=== PATIENT | female | born 1930 | race Caucasian/White ===

== ENCOUNTER 2016-07-03 09:26 | Day surgery (SDC) | payer MEDICARE ==
[2016-07-03] MEDS ORDERED: Sodium Chloride 0.9% 10 ML Syringe FLUSH PRN (09:30)
[2016-07-03] MEDS ORDERED: Phenylephrine 10% Ophth Soln 5 ML Bot EYELF ONE (09:30)
[2016-07-03] MEDS ORDERED: Phenylephrine 10% Ophth Soln 5 ML Bot EYELF PRN (09:30)
[2016-07-03] MEDS ORDERED: Povidone-Iodine 5% Sterile Ophth Soln 30 ML Bottle EYELF ONE ×2 (09:30→10:26)
[2016-07-03] MEDS ORDERED: Proparacaine 0.5% Ophth Soln 15 ML Bottle EYELF ONE (09:30)
[2016-07-03] MEDS ORDERED: Moxifloxacin 0.5% Ophth Soln 3 ML Bottle EYELF ONE (09:30)
[2016-07-03] MEDS ORDERED: Cataract Ophth Solution EYELF ONE (09:30)
[2016-07-03] MEDS ORDERED: Ondansetron 4 MG/2 ML SDV IVPUSH PRN (09:30)
[2016-07-03] MEDS ORDERED: Timolol Maleate 0.5% Ophth Soln 5 ML Bottle EYELF ONE (09:30)
[2016-07-03] MEDS ORDERED: Acetaminophen 325 MG Tab PO PRN (09:30)
[2016-07-03] MEDS ORDERED: Dexamethasone 4 MG/ML SDV IV ONE (10:20)
[2016-07-03] MEDS ORDERED: Midazolam 1 MG/ML 2 ML SDV IV ONE (10:20)
[2016-07-03] MEDS ORDERED: Diclofenac Sodium 0.1% Ophth Soln 5 ML Bottle EYELF ONE (10:28)
[2016-07-03] MEDS ORDERED: Apraclonidine 0.5% Ophth Soln 5 ML Bot EYELF ONE (10:28)
[2016-07-03] MEDS ORDERED: Lidocaine 1% 30 ML SDV ONE (10:29)
[2016-07-03] MEDS ORDERED: Dexamethasone/Neomycin/Polymyxin B Ophth Oint 3.5 GM Tube EYELF ONE (10:29)
[2016-07-03] MEDS ORDERED: Vancomycin 500 MG SDV EYELF ONE (10:29)
[2016-07-03] MEDS ORDERED: Tetracaine 0.5% 2 ML Bottle EYELF ONE (10:29)
[2016-07-03] MEDS ORDERED: Balanced Salt Solution Ophth Irrig 500 ML Bottle IOCULAR ONE (10:29)
[2016-07-03] MEDS ORDERED: Chondroitin Sulfate/Hyaluronate Sodium Ophth Inj 0.75 ML Syringe EYELF ONE (10:30)
[2016-07-03] MEDS ORDERED: Dexamethasone 4 MG/ML SDV IOCULAR ONE (10:35)
--- NOTE | 2016-07-03 11:04 | OR ---
DATE: 07/03/2016 PREOPERATIVE DIAGNOSIS: Cataract, left eye. POSTOPERATIVE DIAGNOSIS: Cataract, left eye. PROCEDURE: Extracapsular cataract extraction with intraocular lens implant, left eye. ANESTHESIA: Topical/local MAC. COMPLICATIONS: None. INDICATION: Mrs. Mejía was seen in the clinic with complaints of blurred vision. She has difficulty reading, difficulty seeing at distance. Clinical examination reveals visually significant cataract. I explained options, I offered cataract surgery, and explained risks preoperatively including but not limited to, infection, retinal detachment, loss of vision, need for additional surgery, and risks associated with anesthesia. We discussed implant options. She requested a monofocal implant. She does have an epiretinal membrane in the left eye and I explained that her ultimate visual potential may be limited. She is symptomatic. Voiced an understanding with respect to risks and limitations and wished to proceed. OPERATIVE DESCRIPTION: After informed consent was obtained and the risks, benefits, and alternatives were explained, the patient was brought to the operative suite and topical anesthesia was administered. The patient was then prepped and draped in the sterile fashion and attention was placed on the left eye. A sterile lid speculum was placed into the left eye to allow operative exposure. A full-thickness paracentesis was made in the temporal portion of the operative eye. Preservative-free lidocaine 0.1 mL was injected into the anterior chamber followed by viscoelastic. A full-thickness corneal incision was then made into the anterior chamber. A bent needle cystotome was used to create a small mike in the anterior capsule. The capsulorrhexis forceps was then used to create a 360-degree curvilinear capsulorrhexis. The nucleus was then removed using a phacoemulsification handpiece and the remaining cortical material was then removed with irrigation and aspiration handpiece. Following removal of the cortical material, the capsular bag was then inspected and noted to be free of any holes or tears. Viscoelastic was then injected into the capsular bag and the intraocular lens was inserted into the capsular bag. No complications occurred. The viscoelastic material was then removed from both the anterior and posterior chambers and from behind the IOL. The lens and capsular bag were then reinspected. The IOL was well centered and the capsular bag intact. The wound and paracentesis sites were inspected and hydrated with balanced saline solution. Both were found to be self-sealing. The intraocular pressure was assessed digitally and found to be within normal range. A good red reflex was noted at the completion of the procedure. No complications occurred during the operation. At the completion of the procedure, Maxitrol, Voltaren, and Iopidine drops were placed into the operative eye. A sterile eye shield was placed over the operative eye and the patient was transported to the postoperative recovery area having tolerated the procedure well. Postoperative instructions were given along with a postoperative appointment. The patient was advised to call with any questions or concerns. [facility] /[id number]
[2016-07-03 13:37] VITALS: BP 179/77
== END 2016-07-03 11:35 | disposition home or self-care (01) ==
LOC: DL.SDS 09:26
PROVIDERS: ATTEND Ophthalmology
DX: H26.9 Unspecified cataract (principal); E11.22 Type 2 diabetes mellitus with diabetic chronic kidney disease; I12.9 Hypertensive chronic kidney disease with stage 1 through stage 4 chronic kidney disease, or unspecified chronic kidney disease; N18.9 Chronic kidney disease, unspecified; F41.9 Anxiety disorder, unspecified; E78.5 Hyperlipidemia, unspecified; Z90.49 Acquired absence of other specified parts of digestive tract; Z98.890 Other specified postprocedural states; Z90.710 Acquired absence of both cervix and uterus; Z79.899 Other long term (current) drug therapy; Z88.8 Allergy status to other drugs, medicaments and biological substances; Z87.891 Personal history of nicotine dependence
CPT/HCPCS: 66984; A9270; J1100; J3370; J7050; 00142; C1780; J2250

== ENCOUNTER 2017-11-08 03:07 | Emergency (ER) | payer MEDICARE ==
[2017-11-08 03:11] VITALS: BP 99/40
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
[2017-11-08 03:40] LABS: ANION GAP 13.2
[2017-11-08] MEDS ORDERED: Cefepime 2 GM in Sodium Chloride 0.9% 50 ML IV ONE (04:22)
[2017-11-08] MEDS ORDERED: metroNIDAZOLE/Normal Saline 500 MG in Premix Bag 100 BAG IV ONE (04:22)
[2017-11-08] MEDS ORDERED: Sodium Chloride 0.9% 1,000 ML IV ONE (04:53)
[2017-11-08] MEDS ORDERED: Sodium Chloride 0.9% 500 ML IV SCH (05:00)
--- NOTE | 2017-11-10 07:31 | EKG ---
11/08/2017- CHALO LE - EKG per my reading, shows sinus rhythm at a rate of 84 with incomplete right bundle-branch block. [facility] /[id number]
== END 2017-11-08 05:07 ==
LOC: DL.ED 03:07
DX: A41.9 Sepsis, unspecified organism (principal); R79.89 Other specified abnormal findings of blood chemistry; I12.0 Hypertensive chronic kidney disease with stage 5 chronic kidney disease or end stage renal disease; N18.9 Chronic kidney disease, unspecified; R94.5 Abnormal results of liver function studies; R53.83 Other fatigue; E78.00 Pure hypercholesterolemia, unspecified; Z87.891 Personal history of nicotine dependence; Z79.899 Other long term (current) drug therapy; Z88.7 Allergy status to serum and vaccine; Z88.5 Allergy status to narcotic agent; Z88.1 Allergy status to other antibiotic agents; Z91.013 Allergy to seafood
CPT/HCPCS: 36415; 71045; 80053; 81001; 83605; 83880; 84484; 85025; 87040; 87077; 87186; 93005; 93010; 96365; 96368; 99285; J0692; J3370; J3490; J7030; J7050; 99284

== ENCOUNTER 2019-09-15 14:03 | Inpatient (IN) | payer MEDICARE ==
[2019-09-15] MEDS ORDERED: Furosemide 20 MG Tab PO SCH (17:45)
[2019-09-15 17:53] LABS: ANION GAP 10.8 mEq/L (7-13)
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
[2019-09-15] MEDS ORDERED: Piperacillin/Tazobactam 3.375 GM in Sodium Chloride 0.9% 100 ML IV SCH (18:00)
[2019-09-15] MEDS ORDERED: Zolpidem 5 MG Tab PO PRN (18:58)
[2019-09-15] MEDS ORDERED: Acetaminophen 325 MG Tab PO PRN (18:58)
[2019-09-15] MEDS ORDERED: Ondansetron 4 MG Tab.DIS PO PRN (18:58)
[2019-09-15] MEDS ORDERED: Docusate Sodium 100 MG Cap PO PRN (18:58)
[2019-09-15] MEDS: Sodium Chloride 0.9% 10 ML Syringe FLUSH PRN ×2 (20:37→21:37)
[2019-09-15] MEDS: Piperacillin/Tazobactam 3.375 GM in Sodium Chloride 0.9% 100 ML IV SCH (21:38)
[2019-09-15] MEDS: Simvastatin 10 MG Tab PO SCH (21:53)
[2019-09-15] MEDS: Lisinopril 10 MG Tab PO SCH (21:54)
[2019-09-15] MEDS: traZODone 50 MG Tab PO SCH (21:54)
[2019-09-15] MEDS: Heparin Sodium 5,000 Units/ML Vial SUBCUT SCH (21:56)
[2019-09-15] MEDS: Gabapentin 100 MG Cap PO SCH (21:56)
[2019-09-16] MEDS: Acetaminophen/HYDROcodone 325-10 MG Tab PO PRN (00:09)
[2019-09-16] MEDS: Sodium Chloride 0.9% 10 ML Syringe FLUSH PRN ×3 (03:08→18:03)
[2019-09-16] MEDS: Piperacillin/Tazobactam 3.375 GM in Sodium Chloride 0.9% 100 ML IV SCH ×3 (03:09→18:03)
[2019-09-16] MEDS: Famotidine 20 MG Tab PO SCH (06:20)
[2019-09-16 06:30] LABS: ANION GAP 9.4 mEq/L (7-13)
[2019-09-16] MEDS: Heparin Sodium 5,000 Units/ML Vial SUBCUT SCH ×3 (06:30→22:11)
[2019-09-16] MEDS: Gabapentin 100 MG Cap PO SCH ×2 (08:41→22:10)
[2019-09-16] MEDS: Lisinopril 10 MG Tab PO SCH ×2 (08:42→22:10)
[2019-09-16] MEDS: Furosemide 20 MG Tab PO SCH (08:42)
[2019-09-16] MEDS: Atenolol 50 MG Tab PO SCH (08:42)
--- NOTE | 2019-09-16 10:24 | PCM.CONSN ---
- General Info Date of Service: 09/16/19 Subjective Update: 89 y/o female who was admitted yesterday for right foot cellulitis. She states she noticed a small area that had opened a few days ago, had the nurse at [facility], where she lives, clean it and bandage. States it was doing well, then yesterday noticed a significant increase in the redness to the great toe and extending up her foot. Also reports some drainage from the great toenail bed. States it is somewhat painful today also. TOenail procedure done last night and she reports foot feels better today. - Patient Data Vitals - Most Recent: Last Vital Signs Temp 36.2 C 09/16/19 08:05 Pulse 60 09/16/19 08:42 Resp 18 09/16/19 08:05 BP 124/51 L 09/16/19 08:42 Pulse Ox 98 09/16/19 08:05 Weight - Most Recent: 62.596 kg I&O - Last 24 Hours: Intake & Output 09/15/19 09/16/19 09/16/19 22:59 06:59 14:59 Intake Total 642 299 Output Total 400 200 Balance 242 299 -200 Lab Results Last 24 Hours: Laboratory Results - last 24 hr 09/15/19 09/15/19 09/16/19 Range/Units 17:25 17:25 05:50 WBC 11.8 H 9.0 (5.0-10.0) 10^3/uL RBC 4.17 L 3.78 L (4.2-5.4) 10^6/uL Hgb 12.3 11.1 L (12.0-16.0) g/dL Hct 37.6 34.2 L (37.0-47.0) % MCV 90.2 D 90.5 (80-100) fL MCH 29.5 29.4 (27.0-34.0) pg MCHC 32.7 L 32.5 L (33.0-35.0) g/dL Plt Count 291 D 261 (150-450) 10^3/uL Neut % (Auto) 74.0 61.5 (42.2-75.2) % Lymph % (Auto) 14.9 L 27.0 (20.5-50.1) % [place] % (Auto) 8.4 H 8.4 H (2-8) % Eos % (Auto) 2.4 3.0 (1.0-3.0) % Baso % (Auto) 0.3 0.1 (0.0-1.0) % Sodium 140 (136-145) mmol/L Potassium 3.8 (3.5-5.1) mmol/L Chloride 103 (98-107) mmol/L Carbon Dioxide 30 (21-32) mmol/L Anion Gap 10.8 (7-13) mEq/L BUN 43 H (7-18) mg/dL Creatinine 1.74 H (0.55-1.02) mg/dL Est Cr Clr Drug Dosing 18.84 mL/min Estimated GFR (MDRD) 28 Glucose 95 (74-99) mg/dL Calcium 9.1 (8.5-10.1) mg/dL 05/29/20 Range/Units 05:50 WBC (5.0-10.0) 10^3/uL RBC (4.2-5.4) 10^6/uL Hgb (12.0-16.0) g/dL Hct (37.0-47.0) % MCV (80-100) fL MCH (27.0-34.0) pg MCHC (33.0-35.0) g/dL Plt Count (150-450) 10^3/uL Neut % (Auto) (42.2-75.2) % Lymph % (Auto) (20.5-50.1) % [place] % (Auto) (2-8) % Eos % (Auto) (1.0-3.0) % Baso % (Auto) (0.0-1.0) % Sodium 140 (136-145) mmol/L Potassium 4.4 (3.5-5.1) mmol/L Chloride 106 (98-107) mmol/L Carbon Dioxide 29 (21-32) mmol/L Anion Gap 9.4 (7-13) mEq/L BUN 36 H (7-18) mg/dL Creatinine 1.82 H (0.55-1.02) mg/dL Est Cr Clr Drug Dosing 18.01 mL/min Estimated GFR (MDRD) 26 Glucose 93 (74-99) mg/dL Calcium 8.2 L (8.5-10.1) mg/dL Lux Results Last 24 Hours: Microbiology 05/28/20 17:55 Gram Stain - Final Foot, Right Med Orders - Current: Current Medications Acetaminophen (Tylenol) 650 mg PO Q4H PRN PRN Reason: Pain (Mild 1-3)/fever Hydrocodone Bitart/Acetaminophen ([place] 325-10 Mg) 1 tab PO Q6H PRN PRN Reason: moderate pain Last Admin: 09/16/19 00:09 Dose: 1 tab Atenolol (Tenormin) 100 mg PO DAILY [facility] Last Admin: 09/16/19 08:42 Dose: 100 mg Docusate Sodium (Colace) 100 mg PO BID PRN PRN Reason: Constipation Famotidine (Pepcid) 20 mg PO ACBREAKFAST [facility] Last Admin: 09/16/19 06:20 Dose: 20 mg Furosemide (Lasix) 20 mg PO MoFr@0900 [facility] Last Admin: 09/16/19 08:42 Dose: 20 mg Gabapentin (Neurontin) 100 mg PO BID [facility] Last Admin: 09/16/19 08:41 Dose: 100 mg Heparin Sodium (Porcine) (Heparin Sodium) 5,000 units SUBCUT Q8HR [facility] Last Admin: 09/16/19 06:30 Dose: Not Given Piperacillin Sod/Tazobactam (Sod 3.375 gm/ Sodium Chloride) 100 mls @ 200 mls/ hr IV Q6HR [facility] Vancomycin HCl 1 gm/ Sodium (Chloride) 250 mls @ 166.667 mls/hr IV ONETIME ONE Stop: 09/17/19 19:29 Lisinopril (Prinivil) 10 mg PO BID [facility] Last Admin: 09/16/19 08:42 Dose: 10 mg Ondansetron HCl (Zofran Odt) 4 mg PO Q6H PRN PRN Reason: nausea, able to take PO Simvastatin (Zocor) 10 mg PO BEDTIME [facility] Last Admin: 09/15/19 21:53 Dose: 10 mg Sodium Chloride (Saline Flush) 10 ml FLUSH ASDIRECTED PRN PRN Reason: Keep Vein Open Last Admin: 09/16/19 03:08 Dose: 10 ml Trazodone HCl (Trazodone) 150 mg PO BEDTIME [facility] Last Admin: 09/15/19 21:54 Dose: 150 mg Vancomycin HCl (Pharmacy To Dose - Vancomycin) 1 dose .XX ASDIRECTED [facility] Zolpidem Tartrate (Ambien) 5 mg PO BEDTIME PRN PRN Reason: Sleep Discontinued Medications Furosemide (Lasix) 20 mg PO .MONFR [facility] Piperacillin Sod/Tazobactam (Sod 3.375 gm/ Sodium Chloride) 100 mls @ 200 mls/ hr IV Q6H [facility] Last Admin: 09/15/19 23:14 Dose: Not Given Vancomycin HCl 1 gm/ Sodium (Chloride) 250 mls @ 166.667 mls/hr IV ONETIME ONE Stop: 09/15/19 20:14 Last Admin: 09/15/19 18:58 Dose: 166.667 mls/hr Piperacillin Sod/Tazobactam (Sod 3.375 gm/ Sodium Chloride) 100 mls @ 200 mls/ hr IV Q6H [facility] Last Infusion: 09/16/19 04:00 Dose: Infused Non-Formulary Medication (Hydrocodone/Acetaminophen [Hydrocodone-Acetamin 7.5- 325]) 1 tab PO Q8H PRN PRN Reason: mod pain - Exam General: Alert, Oriented, No Acute Distress Physical Findings Comments:: right LE: good, palpable pulses to the DP and PT on right foot with good [employer] digits. She does have erythema to the right great toe and extending to midfoot, very dystrophic toenail with some drainage from the base of the nail and the nails is slightly loose. Small scabbed area to medial great toe without drainage. Pain to distal 1st digit. Sepsis Event Note - Evaluation Sepsis Screening Result: No Definite Risk - Focused Exam Vital Signs: Vital Signs Temp Pulse Pulse Resp BP BP Pulse Ox 09/16/19 08:42 60 124/51 L 09/16/19 08:05 36.2 C 51 L 18 124/51 L 98 Date Exam was Performed: 09/16/19 Time Exam was Performed: 10:19 Consult PN Assessment/Plan Procedures: Procedures ASSAY OF AMYLASE (06/12/13) ASSAY OF LACTIC ACID (11/08/17) ASSAY OF NATRIURETIC PEPTIDE (11/08/17) ASSAY OF TROPONIN QUANT (11/08/17) BLOOD CULTURE FOR BACTERIA (11/08/17) C DIFF AMPLIFIED PROBE (05/24/14) COMPLETE CBC W/AUTO DIFF WBC (11/08/17) COMPREHEN METABOLIC PANEL (11/08/17) CT ABD & PELVIS W/O CONTRAST (06/15/15) CT HEAD/BRAIN W/O DYE (06/24/17) CULTURE AEROBIC IDENTIFY (11/08/17) EGD BIOPSY SINGLE/MULTIPLE (04/10/16) ELECTROCARDIOGRAM REPORT (11/08/17) ELECTROCARDIOGRAM TRACING (11/08/17) EMERGENCY DEPT VISIT (11/08/17) EMERGENCY DEPT VISIT (05/19/14) EMERGENCY DEPT VISIT (05/18/14) EMERGENCY DEPT VISIT (05/18/14) EMERGENCY DEPT VISIT (06/12/13) HYDRATE IV INFUSION ADD-ON (05/19/14) HYDRATION IV INFUSION INIT (05/19/14) METABOLIC PANEL TOTAL CA (05/24/14) MICROBE SUSCEPTIBLE LUX (11/08/17) ROUTINE VENIPUNCTURE (11/08/17) THER/DIAG CONCURRENT INF (11/08/17) THER/PROPH/DIAG IV INF INIT (11/08/17) TX/PRO/DX INJ NEW DRUG ADDON (06/12/13) URINALYSIS AUTO W/SCOPE (11/08/17) US EXAM ABDO BACK WALL GABRIEL (06/15/15) X-RAY EXAM CHEST 1 VIEW (11/08/17) XCAPSL CTRC RMVL W/O ECP (07/03/16) Right great toenail avulsion with wash out: injected 2 cc's of 1 % lidocaine plain to right great toe, then once anesthesia was obtained I removed the right great toe with freer elevator and hemostat. I then cleaned nail bed with curette to good healthy tissue. There was some infection present at base of toenail. This was all cleaned. I then applied vashe wound wash. I applied silvasorb, adaptic and gauze with coban dressing. I did obtain wound cultures, which was after wash out. (1) Cellulitis of foot SNOMED Code(s): 177865303 Code(s): L03.119 - CELLULITIS OF UNSPECIFIED PART OF LIMB Current Visit: Yes (2) Infection of toenail SNOMED Code(s): 40339451458254939 Code(s): L03.039 - CELLULITIS OF UNSPECIFIED TOE Current Visit: Yes Problem List Initiated/Reviewed/Updated: Yes Plan: I did do a right great toenail procedure last night to remove the nail. Today when I checked the foot this AM it does look much improved with nice healthy tissue at the nail base. I applied bandage with silvasorb today. They can change this once daily with bandaid and bacitracin x 7 days, then leave open to dry out. I can see her again if any problems arise.
--- NOTE | 2019-09-16 10:39 | PCM.PN ---
- General Info Date of Service: 09/16/19 Admission Dx/Problem (Free Text): r. 1st toe redness Subjective Update: Feeling well, mild pain at the site of the removed toenail. Mild drainage. Redness improved and moderate. No associated fever or chills Functional Status: Reports: Pain Controlled, Tolerating Diet - Review of Systems General: Denies: Fever Pulmonary: Denies: Shortness of Breath Cardiovascular: Denies: Chest Pain, Edema Genitourinary: Denies: Dysuria Neurological: Denies: Confusion - Patient Data Vitals - Most Recent: Last Vital Signs Temp 97.1 F 09/16/19 08:05 Pulse 60 09/16/19 08:42 Resp 18 09/16/19 08:05 BP 124/51 L 09/16/19 08:42 Pulse Ox 98 09/16/19 08:05 Weight - Most Recent: 138 lb I&O - Last 24 Hours: Intake & Output 09/15/19 09/16/19 09/16/19 22:59 06:59 14:59 Intake Total 642 299 240 Output Total 400 200 Balance 242 299 40 Lab Results Last 24 Hours: Laboratory Results - last 24 hr 09/15/19 09/15/19 09/16/19 Range/Units 17:25 17:25 05:50 WBC 11.8 H 9.0 (5.0-10.0) 10^3/uL RBC 4.17 L 3.78 L (4.2-5.4) 10^6/uL Hgb 12.3 11.1 L (12.0-16.0) g/dL Hct 37.6 34.2 L (37.0-47.0) % MCV 90.2 D 90.5 (80-100) fL MCH 29.5 29.4 (27.0-34.0) pg MCHC 32.7 L 32.5 L (33.0-35.0) g/dL Plt Count 291 D 261 (150-450) 10^3/uL Neut % (Auto) 74.0 61.5 (42.2-75.2) % Lymph % (Auto) 14.9 L 27.0 (20.5-50.1) % [place] % (Auto) 8.4 H 8.4 H (2-8) % Eos % (Auto) 2.4 3.0 (1.0-3.0) % Baso % (Auto) 0.3 0.1 (0.0-1.0) % Sodium 140 (136-145) mmol/L Potassium 3.8 (3.5-5.1) mmol/L Chloride 103 (98-107) mmol/L Carbon Dioxide 30 (21-32) mmol/L Anion Gap 10.8 (7-13) mEq/L BUN 43 H (7-18) mg/dL Creatinine 1.74 H (0.55-1.02) mg/dL Est Cr Clr Drug Dosing 18.84 mL/min Estimated GFR (MDRD) 28 Glucose 95 (74-99) mg/dL Calcium 9.1 (8.5-10.1) mg/dL 09/16/19 Range/Units 05:50 WBC (5.0-10.0) 10^3/uL RBC (4.2-5.4) 10^6/uL Hgb (12.0-16.0) g/dL Hct (37.0-47.0) % MCV (80-100) fL MCH (27.0-34.0) pg MCHC (33.0-35.0) g/dL Plt Count (150-450) 10^3/uL Neut % (Auto) (42.2-75.2) % Lymph % (Auto) (20.5-50.1) % [place] % (Auto) (2-8) % Eos % (Auto) (1.0-3.0) % Baso % (Auto) (0.0-1.0) % Sodium 140 (136-145) mmol/L Potassium 4.4 (3.5-5.1) mmol/L Chloride 106 (98-107) mmol/L Carbon Dioxide 29 (21-32) mmol/L Anion Gap 9.4 (7-13) mEq/L BUN 36 H (7-18) mg/dL Creatinine 1.82 H (0.55-1.02) mg/dL Est Cr Clr Drug Dosing 18.01 mL/min Estimated GFR (MDRD) 26 Glucose 93 (74-99) mg/dL Calcium 8.2 L (8.5-10.1) mg/dL Lux Results Last 24 Hours: Microbiology 09/15/19 17:55 Gram Stain - Final Foot, Right Med Orders - Current: Current Medications Acetaminophen (Tylenol) 650 mg PO Q4H PRN PRN Reason: Pain (Mild 1-3)/fever Hydrocodone Bitart/Acetaminophen ([place] 325-10 Mg) 1 tab PO Q6H PRN PRN Reason: moderate pain Last Admin: 09/16/19 00:09 Dose: 1 tab Atenolol (Tenormin) 100 mg PO DAILY [facility] Last Admin: 09/16/19 08:42 Dose: 100 mg Docusate Sodium (Colace) 100 mg PO BID PRN PRN Reason: Constipation Famotidine (Pepcid) 20 mg PO ACBREAKFAST [facility] Last Admin: 09/16/19 06:20 Dose: 20 mg Furosemide (Lasix) 20 mg PO MoFr@0900 [facility] Last Admin: 09/16/19 08:42 Dose: 20 mg Gabapentin (Neurontin) 100 mg PO BID [facility] Last Admin: 09/16/19 08:41 Dose: 100 mg Heparin Sodium (Porcine) (Heparin Sodium) 5,000 units SUBCUT Q8HR [facility] Last Admin: 09/16/19 06:30 Dose: Not Given Piperacillin Sod/Tazobactam (Sod 3.375 gm/ Sodium Chloride) 100 mls @ 200 mls/ hr IV Q6HR [facility] Vancomycin HCl 1 gm/ Sodium (Chloride) 250 mls @ 166.667 mls/hr IV ONETIME ONE Stop: 09/17/19 19:29 Lisinopril (Prinivil) 10 mg PO BID [facility] Last Admin: 09/16/19 08:42 Dose: 10 mg Ondansetron HCl (Zofran Odt) 4 mg PO Q6H PRN PRN Reason: nausea, able to take PO Simvastatin (Zocor) 10 mg PO BEDTIME [facility] Last Admin: 09/15/19 21:53 Dose: 10 mg Sodium Chloride (Saline Flush) 10 ml FLUSH ASDIRECTED PRN PRN Reason: Keep Vein Open Last Admin: 09/16/19 03:08 Dose: 10 ml Trazodone HCl (Trazodone) 150 mg PO BEDTIME [facility] Last Admin: 09/15/19 21:54 Dose: 150 mg Vancomycin HCl (Pharmacy To Dose - Vancomycin) 1 dose .XX ASDIRECTED [facility] Zolpidem Tartrate (Ambien) 5 mg PO BEDTIME PRN PRN Reason: Sleep Discontinued Medications Furosemide (Lasix) 20 mg PO .MONFR [facility] Piperacillin Sod/Tazobactam (Sod 3.375 gm/ Sodium Chloride) 100 mls @ 200 mls/ hr IV Q6H [facility] Last Admin: 09/15/19 23:14 Dose: Not Given Vancomycin HCl 1 gm/ Sodium (Chloride) 250 mls @ 166.667 mls/hr IV ONETIME ONE Stop: 09/15/19 20:14 Last Admin: 09/15/19 18:58 Dose: 166.667 mls/hr Piperacillin Sod/Tazobactam (Sod 3.375 gm/ Sodium Chloride) 100 mls @ 200 mls/ hr IV Q6H [facility] Last Infusion: 09/16/19 04:00 Dose: Infused Non-Formulary Medication (Hydrocodone/Acetaminophen [Hydrocodone-Acetamin 7.5- 325]) 1 tab PO Q8H PRN PRN Reason: mod pain - Exam General: Alert, Oriented Neck: Supple Lungs: Clear to Auscultation, Normal Respiratory Effort Cardiovascular: Regular Rate, Regular Rhythm GI/Abdominal Exam: Normal Bowel Sounds, Soft, Non-Tender Extremities: No Pedal Edema Skin: Warm, Other (r. 1st toe nail removed, mild edema and erythema) Sepsis Event Note - Evaluation Sepsis Screening Result: No Definite Risk - Focused Exam Vital Signs: Vital Signs Temp Pulse Pulse Resp BP BP Pulse Ox 09/16/19 08:42 60 124/51 L 09/16/19 08:05 97.1 F 51 L 18 124/51 L 98 Date Exam was Performed: 09/16/19 Time Exam was Performed: 10:34 - Problem List & Annotations (1) Cellulitis of foot SNOMED Code(s): 317544598 Code(s): L03.119 - CELLULITIS OF UNSPECIFIED PART OF LIMB Status: Acute Current Visit: Yes (2) Infection of toenail SNOMED Code(s): 96028864775141379 Code(s): L03.039 - CELLULITIS OF UNSPECIFIED TOE Status: Acute Current Visit: Yes - Problem List Review Problem List Initiated/Reviewed/Updated: Yes - My Orders Last 24 Hours: My Active Orders 09/15/19 17:00 Blood Culture x2 Reflex Set [OM.PC] Stat 09/15/19 17:25 CULTURE BLOOD [BC] Stat 09/15/19 17:30 CULTURE BLOOD [BC] Stat 09/15/19 17:45 Pharmacy to Dose - Vancomycin 1 dose .XX ASDIRECTED 09/15/19 17:49 Consult to Physician [CONS] Routine 09/15/19 17:55 CULTURE WOUND + SMEAR [RM] Routine 09/15/19 18:55 Acetaminophen/HYDROcodone [[place] 325-10 MG] 1 tab PO Q6H PRN 09/15/19 18:58 Patient Status [ADT] Routine Oxygen Therapy [RC] PRN VTE/DVT Education [RC] PER UNIT ROUTINE Vital Signs [RC] Q4H Acetaminophen [Tylenol] 650 mg PO Q4H PRN Docusate Sodium [Colace] 100 mg PO BID PRN Ondansetron [Zofran ODT] 4 mg PO Q6H PRN Sodium Chloride 0.9% [Saline Flush] 10 ml FLUSH ASDIRECTED PRN Zolpidem [Ambien] 5 mg PO BEDTIME PRN Peripheral IV Insertion Adult [OM.PC] Routine Resuscitation Status Routine 09/15/19 19:00 Antiembolic Devices [RC] PER UNIT ROUTINE Peripheral IV Care [RC] . DIRECTED Antiembolic Hose [OM.PC] Per Unit Routine 09/15/19 21:00 Gabapentin [Neurontin] 100 mg PO BID Simvastatin [Zocor] 10 mg PO BEDTIME lisinopriL [Prinivil] 10 mg PO BID traZODone 150 mg PO BEDTIME 09/15/19 22:00 Heparin Sodium 5,000 units SUBCUT Q8HR 09/16/19 06:00 Famotidine [Pepcid] 20 mg PO ACBREAKFAST 09/16/19 09:00 Furosemide [Lasix] 20 mg PO MoFr@0900 atenoloL [Tenormin] 100 mg PO DAILY 09/16/19 12:00 Piperacillin/Tazobactam [Zosyn] 3.375 gm Sodium Chloride 0.9% [Normal Saline] 100 ml IV Q6HR 09/17/19 18:00 Vancomycin 1 gm Sodium Chloride 0.9% [Normal Saline] 250 ml IV ONETIME 09/19/19 17:30 VANCOMYCIN TROUGH [CHEM] Timed - Plan Plan:: 89-year-old presented with 2 day history of small wound developing into redness , swelling Foot first toe cellulitis Consulted podiatry - toenail removed, wound care with bacitracin wound culture: pending blood culture: pending Empirically treat with Zosyn and vancomycin Hypertension Treat with lisinopril, atenolol DVT prophylaxis with subcutaneous heparin
[2019-09-16] MEDS: Simvastatin 10 MG Tab PO SCH (22:11)
[2019-09-16] MEDS: traZODone 50 MG Tab PO SCH (22:11)
[2019-09-17] MEDS: Piperacillin/Tazobactam 3.375 GM in Sodium Chloride 0.9% 100 ML IV SCH ×4 (00:23→17:52)
[2019-09-17] MEDS: Famotidine 20 MG Tab PO SCH (06:44)
[2019-09-17] MEDS: Heparin Sodium 5,000 Units/ML Vial SUBCUT SCH ×3 (06:44→21:33)
[2019-09-17 06:57] LABS: ANION GAP 11.9 mEq/L (7-13)
[2019-09-17] MEDS: Atenolol 50 MG Tab PO SCH (08:57)
[2019-09-17] MEDS: Lisinopril 10 MG Tab PO SCH (08:58)
[2019-09-17] MEDS: Gabapentin 100 MG Cap PO SCH ×2 (08:59→21:32)
--- NOTE | 2019-09-17 10:40 | PCM.PN ---
- General Info Date of Service: 09/17/19 Admission Dx/Problem (Free Text): r. 1st toe redness Subjective Update: Only mild pain at the site of the removed toenail. Mild drainage. Redness improved and moderate. No associated fever or chills. Feeling improved. Functional Status: Reports: Pain Controlled, Tolerating Diet - Review of Systems General: Denies: Fever, Weakness Pulmonary: Denies: Shortness of Breath Cardiovascular: Denies: Chest Pain, Edema Neurological: Denies: Confusion - Patient Data Vitals - Most Recent: Last Vital Signs Temp 97.6 F 09/17/19 07:48 Pulse 57 L 09/17/19 08:57 Resp 18 09/17/19 07:48 BP 136/54 L 09/17/19 08:58 Pulse Ox 96 09/17/19 07:48 Weight - Most Recent: 138 lb I&O - Last 24 Hours: Intake & Output 09/16/19 09/17/19 09/17/19 22:59 06:59 14:59 Intake Total 220 91 660 Output Total 600 Balance -380 91 660 Lab Results Last 24 Hours: Laboratory Results - last 24 hr 09/17/19 Range/Units 06:15 Sodium 140 (136-145) mmol/L Potassium 3.9 (3.5-5.1) mmol/L Chloride 103 (98-107) mmol/L Carbon Dioxide 29 (21-32) mmol/L Anion Gap 11.9 (7-13) mEq/L BUN 29 H (7-18) mg/dL Creatinine 1.92 H (0.55-1.02) mg/dL Est Cr Clr Drug Dosing 17.08 mL/min Estimated GFR (MDRD) 25 Glucose 104 H (74-99) mg/dL Calcium 8.5 (8.5-10.1) mg/dL Lux Results Last 24 Hours: Microbiology 09/15/19 17:30 Aerobic Blood Culture - Preliminary Blood - Venous - Lab Draw NO GROWTH AFTER 1 DAY Anaerobic Blood Culture - Preliminary NO GROWTH AFTER 1 DAY 09/15/19 17:25 Aerobic Blood Culture - Preliminary Blood - Venous NO GROWTH AFTER 1 DAY Anaerobic Blood Culture - Preliminary NO GROWTH AFTER 1 DAY Med Orders - Current: Current Medications Acetaminophen (Tylenol) 650 mg PO Q4H PRN PRN Reason: Pain (Mild 1-3)/fever Hydrocodone Bitart/Acetaminophen ([place] 325-10 Mg) 1 tab PO Q6H PRN PRN Reason: moderate pain Last Admin: 09/16/19 00:09 Dose: 1 tab Atenolol (Tenormin) 100 mg PO DAILY [facility] Last Admin: 09/17/19 08:57 Dose: 100 mg Docusate Sodium (Colace) 100 mg PO BID PRN PRN Reason: Constipation Famotidine (Pepcid) 20 mg PO ACBREAKFAST [facility] Last Admin: 09/17/19 06:44 Dose: 20 mg Furosemide (Lasix) 20 mg PO MoFr@0900 [facility] Last Admin: 09/16/19 08:42 Dose: 20 mg Gabapentin (Neurontin) 100 mg PO BID [facility] Last Admin: 09/17/19 08:59 Dose: 100 mg Heparin Sodium (Porcine) (Heparin Sodium) 5,000 units SUBCUT Q8HR [facility] Last Admin: 09/17/19 06:44 Dose: 5,000 units Piperacillin Sod/Tazobactam (Sod 3.375 gm/ Sodium Chloride) 100 mls @ 200 mls/ hr IV Q6HR [facility] Last Infusion: 09/17/19 07:26 Dose: Infused Ondansetron HCl (Zofran Odt) 4 mg PO Q6H PRN PRN Reason: nausea, able to take PO Simvastatin (Zocor) 10 mg PO BEDTIME [facility] Last Admin: 09/16/19 22:11 Dose: 10 mg Sodium Chloride (Saline Flush) 10 ml FLUSH ASDIRECTED PRN PRN Reason: Keep Vein Open Last Admin: 09/16/19 18:03 Dose: 10 ml Trazodone HCl (Trazodone) 150 mg PO BEDTIME [facility] Last Admin: 09/16/19 22:11 Dose: 150 mg Zolpidem Tartrate (Ambien) 5 mg PO BEDTIME PRN PRN Reason: Sleep Discontinued Medications Furosemide (Lasix) 20 mg PO .MONFR [facility] Piperacillin Sod/Tazobactam (Sod 3.375 gm/ Sodium Chloride) 100 mls @ 200 mls/ hr IV Q6H [facility] Last Admin: 09/15/19 23:14 Dose: Not Given Vancomycin HCl 1 gm/ Sodium (Chloride) 250 mls @ 166.667 mls/hr IV ONETIME ONE Stop: 09/15/19 20:14 Last Admin: 09/15/19 18:58 Dose: 166.667 mls/hr Piperacillin Sod/Tazobactam (Sod 3.375 gm/ Sodium Chloride) 100 mls @ 200 mls/ hr IV Q6H [facility] Last Infusion: 09/16/19 04:00 Dose: Infused Vancomycin HCl 1 gm/ Sodium (Chloride) 250 mls @ 166.667 mls/hr IV ONETIME ONE Stop: 09/17/19 19:29 Lisinopril (Prinivil) 10 mg PO BID [facility] Last Admin: 09/17/19 08:58 Dose: 10 mg Non-Formulary Medication (Hydrocodone/Acetaminophen [Hydrocodone-Acetamin 7.5- 325]) 1 tab PO Q8H PRN PRN Reason: mod pain Vancomycin HCl (Pharmacy To Dose - Vancomycin) 1 dose .XX ASDIRECTED [facility] - Exam General: Alert, Oriented Neck: Supple Lungs: Clear to Auscultation, Normal Respiratory Effort Cardiovascular: Regular Rate, Regular Rhythm GI/Abdominal Exam: Normal Bowel Sounds, Soft, Non-Tender Extremities: No Pedal Edema, Other (Right great toe with minimal redness, resolved edema) Sepsis Event Note - Evaluation Sepsis Screening Result: No Definite Risk - Focused Exam Vital Signs: Vital Signs Temp Pulse Pulse Resp BP BP Pulse Ox 09/17/19 08:58 136/54 L 09/17/19 08:57 57 L 136/54 L 09/17/19 07:48 97.6 F 57 L 18 136/44 L 96 Date Exam was Performed: 09/17/19 Time Exam was Performed: 10:40 - Problem List & Annotations (1) Cellulitis of foot SNOMED Code(s): 085973772 Code(s): L03.119 - CELLULITIS OF UNSPECIFIED PART OF LIMB Status: Acute Current Visit: Yes (2) Infection of toenail SNOMED Code(s): 98843502816039470 Code(s): L03.039 - CELLULITIS OF UNSPECIFIED TOE Status: Acute Current Visit: Yes - Problem List Review Problem List Initiated/Reviewed/Updated: Yes - My Orders Last 24 Hours: My Active Orders 09/16/19 12:00 Piperacillin/Tazobactam [Zosyn] 3.375 gm Sodium Chloride 0.9% [Normal Saline] 100 ml IV Q6HR 09/19/19 17:30 VANCOMYCIN TROUGH [CHEM] Timed - Plan Plan:: 89-year-old presented with 2 day history of small wound developing into redness , swelling Foot first toe cellulitis Consulted podiatry - toenail removed, wound care with bacitracin wound culture: pending blood culture: pending, negative for now Empirically treat with Zosyn We will stop vancomycin due to worsening renal failure Acute renal failure Slowly worsening creatinine Stop vancomycin Stop lisinopril Hypertension Treat with atenolol DVT prophylaxis with subcutaneous heparin
[2019-09-17] MEDS: Sodium Chloride 0.9% 10 ML Syringe FLUSH PRN ×2 (11:59→17:52)
[2019-09-17] MEDS: Bacitracin Oint 1 GM U/D Packet TOP SCH (14:26)
[2019-09-17] MEDS: traZODone 50 MG Tab PO SCH (21:32)
[2019-09-17] MEDS: Simvastatin 10 MG Tab PO SCH (21:33)
[2019-09-17] MEDS: Acetaminophen/HYDROcodone 325-10 MG Tab PO PRN (21:34)
[2019-09-18] MEDS: Piperacillin/Tazobactam 3.375 GM in Sodium Chloride 0.9% 100 ML IV SCH ×5 (06:22→18:00)
[2019-09-18] MEDS: Famotidine 20 MG Tab PO SCH (06:24)
[2019-09-18] MEDS: Heparin Sodium 5,000 Units/ML Vial SUBCUT SCH ×3 (06:24→22:15)
[2019-09-18] MEDS: Atenolol 50 MG Tab PO SCH (08:18)
[2019-09-18] MEDS: Gabapentin 100 MG Cap PO SCH ×2 (08:19→20:20)
[2019-09-18] MEDS: Bacitracin Oint 1 GM U/D Packet TOP SCH (09:59)
--- NOTE | 2019-09-18 11:11 | PCM.PN ---
- General Info Date of Service: 09/18/19 Admission Dx/Problem (Free Text): r. 1st toe redness Subjective Update: Only mild pain at the site of the removed toenail. minimal drainage. Redness resolved still mild swelling at toe. No associated fever or chills. Feeling improved. Functional Status: Reports: Pain Controlled, Tolerating Diet - Review of Systems General: Denies: Fever Pulmonary: Denies: Shortness of Breath Cardiovascular: Denies: Chest Pain Gastrointestinal: Denies: Abdominal Pain Genitourinary: Denies: Dysuria - Patient Data Vitals - Most Recent: Last Vital Signs Temp 97.4 F 09/17/19 22:00 Pulse 60 09/18/19 08:18 Resp 20 09/17/19 22:00 BP 145/63 H 09/18/19 08:18 Pulse Ox 97 09/17/19 22:00 Weight - Most Recent: 138 lb I&O - Last 24 Hours: Intake & Output 09/17/19 09/18/19 09/18/19 22:59 06:59 14:59 Intake Total 421 104 Balance 421 104 Lux Results Last 24 Hours: Microbiology 09/15/19 17:55 Gram Stain - Final Foot, Right Wound Culture - Preliminary Skin Lissy 09/15/19 17:30 Aerobic Blood Culture - Preliminary Blood - Venous - Lab Draw NO GROWTH AFTER 2 DAYS Anaerobic Blood Culture - Preliminary NO GROWTH AFTER 2 DAYS 09/15/19 17:25 Aerobic Blood Culture - Preliminary Blood - Venous NO GROWTH AFTER 2 DAYS Anaerobic Blood Culture - Preliminary NO GROWTH AFTER 2 DAYS Med Orders - Current: Current Medications Acetaminophen (Tylenol) 650 mg PO Q4H PRN PRN Reason: Pain (Mild 1-3)/fever Hydrocodone Bitart/Acetaminophen ([place] 325-10 Mg) 1 tab PO Q6H PRN PRN Reason: moderate pain Last Admin: 09/17/19 21:34 Dose: 1 tab Atenolol (Tenormin) 100 mg PO DAILY [facility] Last Admin: 09/18/19 08:18 Dose: 100 mg Bacitracin (Bacitracin Oint 1 Gm) 1 dose TOP DAILY [facility] Last Admin: 09/18/19 09:59 Dose: 1 dose Docusate Sodium (Colace) 100 mg PO BID PRN PRN Reason: Constipation Famotidine (Pepcid) 20 mg PO ACBREAKFAST [facility] Last Admin: 09/18/19 06:24 Dose: 20 mg Furosemide (Lasix) 20 mg PO MoFr@0900 [facility] Last Admin: 09/16/19 08:42 Dose: 20 mg Gabapentin (Neurontin) 100 mg PO BID [facility] Last Admin: 09/18/19 08:19 Dose: 100 mg Heparin Sodium (Porcine) (Heparin Sodium) 5,000 units SUBCUT Q8HR [facility] Last Admin: 09/18/19 06:24 Dose: 5,000 units Piperacillin Sod/Tazobactam (Sod 3.375 gm/ Sodium Chloride) 100 mls @ 200 mls/ hr IV Q6HR [facility] Last Admin: 09/18/19 06:22 Dose: 200 mls/hr Ondansetron HCl (Zofran Odt) 4 mg PO Q6H PRN PRN Reason: nausea, able to take PO Simvastatin (Zocor) 10 mg PO BEDTIME [facility] Last Admin: 09/17/19 21:33 Dose: 10 mg Sodium Chloride (Saline Flush) 10 ml FLUSH ASDIRECTED PRN PRN Reason: Keep Vein Open Last Admin: 09/17/19 17:52 Dose: 10 ml Trazodone HCl (Trazodone) 150 mg PO BEDTIME [facility] Last Admin: 09/17/19 21:32 Dose: 150 mg Zolpidem Tartrate (Ambien) 5 mg PO BEDTIME PRN PRN Reason: Sleep Discontinued Medications Furosemide (Lasix) 20 mg PO .MONFR [facility] Piperacillin Sod/Tazobactam (Sod 3.375 gm/ Sodium Chloride) 100 mls @ 200 mls/ hr IV Q6H [facility] Last Admin: 09/15/19 23:14 Dose: Not Given Vancomycin HCl 1 gm/ Sodium (Chloride) 250 mls @ 166.667 mls/hr IV ONETIME ONE Stop: 09/15/19 20:14 Last Admin: 09/15/19 18:58 Dose: 166.667 mls/hr Piperacillin Sod/Tazobactam (Sod 3.375 gm/ Sodium Chloride) 100 mls @ 200 mls/ hr IV Q6H [facility] Last Infusion: 09/16/19 04:00 Dose: Infused Vancomycin HCl 1 gm/ Sodium (Chloride) 250 mls @ 166.667 mls/hr IV ONETIME ONE Stop: 09/17/19 19:29 Lisinopril (Prinivil) 10 mg PO BID [facility] Last Admin: 09/17/19 08:58 Dose: 10 mg Non-Formulary Medication (Hydrocodone/Acetaminophen [Hydrocodone-Acetamin 7.5- 325]) 1 tab PO Q8H PRN PRN Reason: mod pain Vancomycin HCl (Pharmacy To Dose - Vancomycin) 1 dose .XX ASDIRECTED TALIB - Exam General: Alert, Oriented Neck: Supple Lungs: Clear to Auscultation, Normal Respiratory Effort Cardiovascular: Regular Rate, Regular Rhythm GI/Abdominal Exam: Normal Bowel Sounds, Soft, Non-Tender Extremities: No Pedal Edema Skin: Warm Wound/Incisions: Other (r. 1st toe toenaiil bed is clean, minimal drainage) Sepsis Event Note - Evaluation Sepsis Screening Result: No Definite Risk - Focused Exam Vital Signs: Vital Signs Pulse BP 09/18/19 08:18 60 145/63 H Date Exam was Performed: 09/18/19 Time Exam was Performed: 11:11 - Problem List & Annotations (1) Cellulitis of foot SNOMED Code(s): 913075137 Code(s): L03.119 - CELLULITIS OF UNSPECIFIED PART OF LIMB Status: Acute Current Visit: Yes (2) Infection of toenail SNOMED Code(s): 63173491464091669 Code(s): L03.039 - CELLULITIS OF UNSPECIFIED TOE Status: Acute Current Visit: Yes - Problem List Review Problem List Initiated/Reviewed/Updated: Yes - My Orders Last 24 Hours: My Active Orders 09/19/19 05:15 BASIC METABOLIC PANEL,BMP [CHEM] AM - Plan Plan:: 89-year-old presented with 2 day history of small wound developing into redness , swelling Foot first toe cellulitis Consulted podiatry - toenail removed, wound care with bacitracin wound culture: skin lissy blood culture: pending, negative for now Empirically treat with Zosyn stopped vancomycin due to worsening renal failure Acute renal failure Slowly worsening creatinine Stopped vancomycin Stopped lisinopril recheck in AM Hypertension Treat with atenolol DVT prophylaxis with subcutaneous heparin
[2019-09-18] MEDS: Sodium Chloride 0.9% 10 ML Syringe FLUSH PRN ×2 (12:47→17:59)
[2019-09-18] MEDS: Acetaminophen/HYDROcodone 325-10 MG Tab PO PRN (20:00)
[2019-09-18] MEDS: Simvastatin 10 MG Tab PO SCH (20:20)
[2019-09-18] MEDS: traZODone 50 MG Tab PO SCH (20:20)
[2019-09-19] MEDS: Piperacillin/Tazobactam 3.375 GM in Sodium Chloride 0.9% 100 ML IV SCH ×3 (00:15→15:02)
[2019-09-19] MEDS: Famotidine 20 MG Tab PO SCH (05:49)
[2019-09-19] MEDS: Heparin Sodium 5,000 Units/ML Vial SUBCUT SCH ×2 (05:50→15:02)
[2019-09-19 06:54] LABS: ANION GAP 10.2 mEq/L (7-13)
[2019-09-19] MEDS: Gabapentin 100 MG Cap PO SCH (08:42)
[2019-09-19] MEDS: Atenolol 50 MG Tab PO SCH (08:43)
[2019-09-19] MEDS: Acetaminophen/HYDROcodone 325-10 MG Tab PO PRN (08:43)
[2019-09-19] MEDS: Furosemide 20 MG Tab PO SCH (08:43)
[2019-09-19 08:46] VITALS: BP 187/66; PULSE 66
--- NOTE | 2019-09-19 10:57 | PCM.DCSUM1 ---
Discharge Summary - Hospital Course Free Text/Narrative:: 89-year-old presented with 2 day history of small wound developing into redness , swelling Foot first toe cellulitis Consulted podiatry - toenail removed, wound care with bacitracin wound culture: skin demond blood culture: pending, negative for now Empirically treated with Zosyn - switch to levofloxacin stopped vancomycin due to worsening renal failure cellulitis resolved Acute renal failure worsening creatinine whila on vanc + marj Stopped vancomycin Stopped lisinopril - now renal fx. improved - will resume Hypertension Treat with atenolol Diagnosis: Stroke: No - Discharge Data Discharge Date: 09/19/19 Discharge Disposition: DC/Tfer to [place] [id number] Condition: Good - Referral to Home Health Primary Care Physician: Margarita Villagran MD - Discharge Diagnosis/Problem(s) (1) Cellulitis of foot SNOMED Code(s): 461443572 ICD Code: L03.119 - CELLULITIS OF UNSPECIFIED PART OF LIMB Status: Acute Current Visit: Yes (2) Infection of toenail SNOMED Code(s): 41165505790499849 ICD Code: L03.039 - CELLULITIS OF UNSPECIFIED TOE Status: Acute Current Visit: Yes (3) CHUCKY (acute kidney injury) SNOMED Code(s): 91297531, 94674997 ICD Code: N17.9 - ACUTE KIDNEY FAILURE, UNSPECIFIED Status: Acute Current Visit: Yes - Patient Summary/Data Consults: Consultations 09/15/19 17:49 Consult to Physician [CONS] Routine - Patient Instructions Diet: Heart Healthy Diet Activity: As Tolerated - Discharge Plan *PRESCRIPTION DRUG MONITORING PROGRAM REVIEWED*: Not Applicable *COPY OF PRESCRIPTION DRUG MONITORING REPORT IN PATIENT TANNER: Not Applicable Prescriptions/Med Rec: Bacitracin [Bacitracin Oint 1 GM] 1 cm TOP DAILY #1 tube levoFLOXacin [Levofloxacin] 500 mg PO DAILY #5 tablet Home Medications: Home Meds Simvastatin [Zocor] 10 mg PO BEDTIME 06/20/13 [History] lisinopriL [Prinivil] 10 mg PO BID 06/20/13 [History] Gabapentin [Neurontin] 100 mg PO BID 11/08/17 [History] Alendronate [Fosamax] 35 mg PO .WED 09/15/19 [History] Calcium Carb/Vitamin D3/Vit K1 [Viactiv 650 mg-12.5 Mcg Chew] 1 tab PO DAILY [History] Famotidine [Pepcid AC] 20 mg PO ACBREAKFAST 09/15/19 [History] Furosemide 20 mg PO .MONFR 09/15/19 [History] Hydrocodone/Acetaminophen [Hydrocodone-Acetamin 7.5-325] 1 tab PO Q8H PRN [History] Magnesium Chloride [Slow-Mag] 71.5 mg PO DAILY 09/15/19 [History] Magnesium Hydroxide [Milk of Magnesia] 30 ml PO Q24H 09/15/19 [History] atenoloL [Tenormin] 100 mg PO DAILY 09/15/19 [History] traZODone HCl [Trazodone HCl] 150 mg PO BEDTIME 09/15/19 [History] Bacitracin [Bacitracin Oint 1 GM] 1 cm TOP DAILY #1 tube 09/19/19 [Rx] levoFLOXacin [Levofloxacin] 500 mg PO DAILY #5 tablet 09/19/19 [Rx] Oxygen Therapy Mode: Room Air - Discharge Summary/Plan Comment DC Time >30 min.: No - General Info Date of Service: 09/19/19 Admission Dx/Problem (Free Text: r. 1st toe redness Subjective Update: No significant pain at the site of the removed toenail. minimal drainage. Redness and edema resolved . No associated fever or chills. - Review of Systems General: Denies: Fever Pulmonary: Denies: Shortness of Breath Cardiovascular: Denies: Chest Pain, Edema Gastrointestinal: Denies: Abdominal Pain Genitourinary: Denies: Dysuria - Patient Data Vitals - Most Recent: Last Vital Signs Temp 97.1 F 09/19/19 08:00 Pulse 66 09/19/19 08:43 Resp 20 09/19/19 08:00 BP 187/66 H 09/19/19 08:43 Pulse Ox 98 09/19/19 08:00 Weight - Most Recent: 138 lb I&O - Last 24 hours: Intake & Output 09/18/19 09/19/19 09/19/19 22:59 06:59 14:59 Intake Total 860 196 Balance 860 196 Lab Results - Last 24 hrs: Laboratory Results - last 24 hr 09/19/19 09/19/19 Range/Units 06:20 09:56 Sodium 144 (136-145) mmol/L Potassium 4.2 (3.5-5.1) mmol/L Chloride 108 H (98-107) mmol/L Carbon Dioxide 30 (21-32) mmol/L Anion Gap 10.2 (7-13) mEq/L BUN 17 (7-18) mg/dL Creatinine 1.50 H (0.55-1.02) mg/dL Est Cr Clr Drug Dosing 21.86 mL/min Estimated GFR (MDRD) 33 Glucose 96 (74-99) mg/dL Calcium 7.9 L (8.5-10.1) mg/dL SARS-CoV-2 RNA (RT-PCR) Negative (NEGATIVE) CRISTELA Results - Last 24 hrs: Microbiology 09/15/19 17:55 Gram Stain - Final Foot, Right Wound Culture - Final Skin Demond 09/15/19 17:30 Aerobic Blood Culture - Preliminary Blood - Venous - Lab Draw NO GROWTH AFTER 3 DAYS Anaerobic Blood Culture - Preliminary NO GROWTH AFTER 3 DAYS 09/15/19 17:25 Aerobic Blood Culture - Preliminary Blood - Venous NO GROWTH AFTER 3 DAYS Anaerobic Blood Culture - Preliminary NO GROWTH AFTER 3 DAYS Med Orders - Current: Current Medications Acetaminophen (Tylenol) 650 mg PO Q4H PRN PRN Reason: Pain (Mild 1-3)/fever Hydrocodone Bitart/Acetaminophen ([place] 325-10 Mg) 1 tab PO Q6H PRN PRN Reason: moderate pain Last Admin: 09/19/19 08:43 Dose: 1 tab Atenolol (Tenormin) 100 mg PO DAILY [facility] Last Admin: 09/19/19 08:43 Dose: 100 mg Bacitracin (Bacitracin Oint 1 Gm) 1 dose TOP DAILY [facility] Last Admin: 09/18/19 09:59 Dose: 1 dose Docusate Sodium (Colace) 100 mg PO BID PRN PRN Reason: Constipation Famotidine (Pepcid) 20 mg PO ACBREAKFAST [facility] Last Admin: 09/19/19 05:49 Dose: 20 mg Furosemide (Lasix) 20 mg PO MoFr@0900 [facility] Last Admin: 09/19/19 08:43 Dose: 20 mg Gabapentin (Neurontin) 100 mg PO BID [facility] Last Admin: 09/19/19 08:42 Dose: 100 mg Heparin Sodium (Porcine) (Heparin Sodium) 5,000 units SUBCUT Q8HR [facility] Last Admin: 09/19/19 05:50 Dose: 5,000 units Piperacillin Sod/Tazobactam (Sod 3.375 gm/ Sodium Chloride) 100 mls @ 200 mls/ hr IV Q6HR [facility] Last Admin: 09/19/19 05:50 Dose: 200 mls/hr Ondansetron HCl (Zofran Odt) 4 mg PO Q6H PRN PRN Reason: nausea, able to take PO Simvastatin (Zocor) 10 mg PO BEDTIME [facility] Last Admin: 09/18/19 20:20 Dose: 10 mg Sodium Chloride (Saline Flush) 10 ml FLUSH ASDIRECTED PRN PRN Reason: Keep Vein Open Last Admin: 09/18/19 17:59 Dose: 10 ml Trazodone HCl (Trazodone) 150 mg PO BEDTIME [facility] Last Admin: 09/18/19 20:20 Dose: 150 mg Zolpidem Tartrate (Ambien) 5 mg PO BEDTIME PRN PRN Reason: Sleep Discontinued Medications Furosemide (Lasix) 20 mg PO .MONFR [facility] Piperacillin Sod/Tazobactam (Sod 3.375 gm/ Sodium Chloride) 100 mls @ 200 mls/ hr IV Q6H [facility] Last Admin: 09/15/19 23:14 Dose: Not Given Vancomycin HCl 1 gm/ Sodium (Chloride) 250 mls @ 166.667 mls/hr IV ONETIME ONE Stop: 09/15/19 20:14 Last Admin: 09/15/19 18:58 Dose: 166.667 mls/hr Piperacillin Sod/Tazobactam (Sod 3.375 gm/ Sodium Chloride) 100 mls @ 200 mls/ hr IV Q6H [facility] Last Infusion: 09/16/19 04:00 Dose: Infused Vancomycin HCl 1 gm/ Sodium (Chloride) 250 mls @ 166.667 mls/hr IV ONETIME ONE Stop: 09/17/19 19:29 Lisinopril (Prinivil) 10 mg PO BID [facility] Last Admin: 09/17/19 08:58 Dose: 10 mg Non-Formulary Medication (Hydrocodone/Acetaminophen [Hydrocodone-Acetamin 7.5- 325]) 1 tab PO Q8H PRN PRN Reason: mod pain Vancomycin HCl (Pharmacy To Dose - Vancomycin) 1 dose .XX ASDIRECTED TALIB - Exam General: Reports: Alert, Oriented Neck: Reports: Supple Lungs: Reports: Clear to Auscultation, Normal Respiratory Effort Cardiovascular: Reports: Regular Rate, Regular Rhythm GI/Abdominal Exam: Normal Bowel Sounds, Soft, Non-Tender Extremities: No Pedal Edema Skin: Reports: Warm, Other (Right first toe minimal edema, resolved erythema, no significant drainage)
[2019-09-19] MEDS: Bacitracin Oint 1 GM U/D Packet TOP SCH (12:25)
== END 2019-09-19 12:52 | DRG 603 ==
LOC: DL.MS 14:26
PROVIDERS: ADMIT Internal Medicine; ATTEND Internal Medicine
PROC: 0HBRXZZ Excision of Toe Nail, External Approach (ICD-10-PCS; principal; 2019-09-16)
DX: L03.031 Cellulitis of right toe (principal); N17.9 Acute kidney failure, unspecified; H54.7 Unspecified visual loss; E78.00 Pure hypercholesterolemia, unspecified; N18.9 Chronic kidney disease, unspecified; I12.9 Hypertensive chronic kidney disease with stage 1 through stage 4 chronic kidney disease, or unspecified chronic kidney disease; N39.3 Stress incontinence (female) (male); M19.90 Unspecified osteoarthritis, unspecified site; G89.29 Other chronic pain; M54.9 Dorsalgia, unspecified; F41.9 Anxiety disorder, unspecified; M85.80 Other specified disorders of bone density and structure, unspecified site; Z90.49 Acquired absence of other specified parts of digestive tract; Z98.49 Cataract extraction status, unspecified eye; Z90.710 Acquired absence of both cervix and uterus; Z79.899 Other long term (current) drug therapy; Z88.7 Allergy status to serum and vaccine; Z88.5 Allergy status to narcotic agent; Z91.013 Allergy to seafood; Z88.1 Allergy status to other antibiotic agents; Z87.891 Personal history of nicotine dependence; Z20.828 Contact with and (suspected) exposure to other viral communicable diseases
CPT/HCPCS: 36415; 80048; 85025; 87040; 87070; 87205; A9270-GY; J1644; J2543; J3370; J7050; U0002

== ENCOUNTER 2019-11-06 12:30 | Emergency (ER) | payer MEDICARE ==
[2019-11-06 12:35] VITALS: BP 169/68; PULSE 63
[2019-11-06 13:09] LABS: ANION GAP 11.2 mEq/L (7-13)
[2019-11-06] MEDS: Sodium Chloride 0.9% 1,000 ML IV STA (13:32)
[2019-11-06] MEDS: Bacitracin Oint 1 GM U/D Packet ONE (13:44)
[2019-11-06] MEDS: Bacitracin Oint 1 GM U/D Packet TOP ONE (13:44)
--- NOTE | 2019-11-06 13:46 | CT ---
PROCEDURE INFORMATION: Exam: CT Head Without Contrast Exam date and time: 11/06/2019 1:01 PM Age: 89 years old Clinical indication: Injury or trauma; Fall; Initial encounter; Blunt trauma (contusions or hematomas); With loss of consciousness; Not specified; Additional info: Fall with loc TECHNIQUE: Imaging protocol: Computed tomography of the head without contrast. Radiation optimization: All CT scans at this facility use at least one of these dose optimization techniques: automated exposure control; mA and/or kV adjustment per patient size (includes targeted exams where dose is matched to clinical indication); or iterative reconstruction. COMPARISON: CT Head wo Cont 06/24/2017 10:55 AM FINDINGS: Brain: Age-related involutional changes and chronic microvascular ischemic disease. No evidence for acute transcortical infarct. No mass effect or midline shift. No extra-axial collection. No acute intracranial hemorrhage. Basal cisterns are patent. Ventricles: Normal. No ventriculomegaly. Bones/joints: Unremarkable. No acute fracture. Sinuses: Visualized sinuses are unremarkable. No fluid levels. Mastoid air cells: Visualized mastoid air cells are well aerated. Orbits: Left cataract surgery. Soft tissues: Unremarkable. IMPRESSION: No evidence for acute transcortical infarct, acute intracranial hemorrhage, or mass effect.
--- NOTE | 2019-11-06 15:03 | EDM.PDOC ---
Scribed by Ayesha Almaguer 11/06/19 [id number] for Paige Marshall NP ED HPI GENERAL MEDICAL PROBLEM - General Chief Complaint: General Stated Complaint: amb Time Seen by Provider: 11/06/19 12:40 Source of Information: Reports: Patient, EMS, EMS Notes Reviewed, RN, RN Notes Reviewed History Limitations: Reports: No Limitations - History of Present Illness INITIAL COMMENTS - FREE TEXT/NARRATIVE: Patient presents to ED by [facility] from assisted living. She fell today hitting her head on the window ceil. It was about 20 minutes until somebody found her. She has a scratch behind her right ear from hitting a clock. She states "I think I may have had loss of consciousness". She has a mild headache on the right. No nausea or vomiting. Asked why she fell she states "I was not using walker and shoes tripped on carpet. She is on no blood thinners. She has back pain, which is her chronic and no change from usual. No neck pain. Onset: Today Duration: Constant Location: Reports: Generalized Quality: Reports: Ache Severity: Mild Improves with: Reports: None Worsens with: Reports: None Associated Symptoms: Reports: No Other Symptoms Posterior Head Pain Score (Numeric/FACES): 2 - Related Data Allergies Allergy/AdvReac Type Severity Reaction Status Date / Time tetanus and diphtheria Allergy Severe Bronchospas Verified 11/06/19 12:40 toxoids ms [tetanus & diphtheria toxoids] codeine Allergy Unknown Rash Verified 11/06/19 12:40 shellfish derived Allergy Unknown Rash Verified 11/06/19 12:40 amoxicillin trihydrate AdvReac Unknown Nausea and Verified 11/06/19 12:40 [From Augmentin] Vomiting Home Meds: Home Meds Simvastatin [Zocor] 10 mg PO BEDTIME 06/20/13 [History] lisinopriL [Prinivil] 20 mg PO BID 06/20/13 [History] Gabapentin [Neurontin] 100 mg PO BID 11/08/17 [History] Alendronate [Fosamax] 35 mg PO .WED 09/15/19 [History] Calcium Carb/Vitamin D3/Vit K1 [Viactiv 650 mg-12.5 Mcg Chew] 1 tab PO DAILY 09/15/19 [History] Famotidine [Pepcid AC] 20 mg PO ACBREAKFAST 09/15/19 [History] Furosemide 20 mg PO .MONFR 09/15/19 [History] Hydrocodone/Acetaminophen [Hydrocodone-Acetamin 7.5-325] 1 tab PO Q8H PRN 09/15/19 [History] Magnesium Chloride [Slow-Mag] 71.5 mg PO DAILY 09/15/19 [History] Magnesium Hydroxide [Milk of Magnesia] 30 ml PO Q24H PRN 09/15/19 [History] atenoloL [Tenormin] 100 mg PO DAILY 09/15/19 [History] traZODone HCl [Trazodone HCl] 150 mg PO BEDTIME 09/15/19 [History] Bacitracin [Bacitracin Oint 1 GM] 1 cm TOP DAILY #1 tube 09/19/19 [Rx] Past Medical History - Past Health History Medical/Surgical History: Denies Medical/Surgical History HEENT History: Reports: Allergic Rhinitis, Cataract, Impaired Vision Cardiovascular History: Reports: High Cholesterol, Hypertension, Other (See Below) Other Cardiovascular History: "occasional irregular heart rate" Respiratory History: Reports: None Gastrointestinal History: Reports: Diverticulosis Genitourinary History: Reports: Chronic Renal Insuffiency, Other (See Below) Other Genitourinary History: RENAL CYSTS, stress incontinence 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 , Endometriosis, Fibroids, Musculoskeletal History: Reports: Arthritis, Back Pain, Chronic, Other (See Below) Other Musculoskeletal History: DEGENERATIVE JOINT DISEASE, "CRUSH INJURY TO RIGHT FOOT", SCOLIOSIS Neurological History: Reports: None Psychiatric History: Reports: Anxiety Endocrine/Metabolic History: Reports: Osteopenia Hematologic History: Reports: None Immunologic History: Reports: None Oncologic (Cancer) History: Reports: None Dermatologic History: Reports: Other (See Below) Other Dermatologic History: dry skin and moles - Infectious Disease History Infectious Disease History: Reports: Shingles - Past Surgical History Head Surgeries/Procedures: Reports: None HEENT Surgical History: Reports: Adenoidectomy, Cataract Surgery, Naso-Sinus Surgery, Tonsillectomy Cardiovascular Surgical History: Reports: None Respiratory Surgical History: Reports: None GI Surgical History: Reports: Appendectomy, Cholecystectomy, Colonoscopy, Other (See Below) Other GI Surgeries/Procedures: surgery for diverticulitis Female Surgical History: Reports: Section, Hysterectomy, Salpingo- Oophorectomy Endocrine Surgical History: Reports: None Neurological Surgical History: Reports: Laminectomy, Scoliosis Musculoskeletal Surgical History: Reports: Other (See Below) Other Musculoskeletal Surgeries/Procedures:: "back surgery in 1952" Oncologic Surgical History: Reports: None Social & Family History - Family History Family Medical History: Noncontributory - Caffeine Use Caffeine Use: Reports: Coffee, Tea Other Caffeine Use: occasional pepsi or coke ED ROS GENERAL - Review of Systems Review Of Systems: Comprehensive ROS is negative, except as noted in HPI. Constitutional: Reports: No Symptoms Respiratory: Reports: No Symptoms Cardiovascular: Reports: No Symptoms GI/Abdominal: Reports: No Symptoms Neurological: Reports: No Symptoms ED EXAM, GENERAL - Physical Exam Exam: See Below Exam Limited By: No Limitations General Appearance: Alert, WD/WN, No Apparent Distress Eye Exam: Bilateral Eye: EOMI, Normal Inspection, PERRL Ears: Normal External Exam, Normal Canal, Hearing Grossly Normal, Normal TMs Ear Exam: Bilateral Ear: TM normal Nose: Normal Inspection, Normal Mucosa, No Blood Head: Atraumatic (Mild abrasion behind right mastoid region), Normocephalic Neck: Normal Inspection, Supple, Non-Tender, Full Range of Motion Respiratory/Chest: No Respiratory Distress, Lungs Clear, Normal Breath Sounds, No Accessory Muscle Use, Chest Non-Tender Cardiovascular: Normal Peripheral Pulses, Regular Rate, Rhythm, No Edema, No Gallop, No JVD, No Murmur, No Rub, Other (Pheripheral pulses intact) GI/Abdominal: Normal Bowel Sounds, Soft, Non-Tender, No Organomegaly, No Distention, No Abnormal Bruit, No Mass (Female) Exam: Deferred Rectal (Female) Exam: Deferred Back Exam: Normal Inspection, Full Range of Motion, NT Extremities: Other (3/5 upper and lower strength. ) Neurological: Alert, Oriented, CN II-XII Intact, Normal Cognition, No Motor/Sensory Deficits, Other (NIHSC scale 0. ). No: Memory Loss Remote Events, Memory Loss Recent Events Skin Exam: Other (Behind right ear over mastoids 3cm superficial abrasion. No pronator drift--finger tap =. ) EKG INTERPRETATION EKG Date: 11/06/19 Time: 12:44 Rhythm: NSR (sinus rhythm) Rate (Beats/Min): 60 QRS: RBBB (incomplete and LAFB.) Comparison: No Change Course - Vital Signs Text/Narrative:: EKG - no changes; nsr. No evidence that patient was dizzy and caused fall. cbc normal, cmp mild dehydration; with elevated BUN and creat. Given IVF while in ER. Urine I discussed Normal CT of head with Son on the phone; will return to Assisted living. Remained alert and oriented during her stay at ER. Last Recorded V/S: Last Vital Signs Temp 98.1 F 11/06/19 12:33 Pulse 63 11/06/19 12:33 Resp 14 11/06/19 12:33 BP 169/68 H 11/06/19 12:33 Pulse Ox 94 L 11/06/19 12:33 - Orders/Labs/Meds Orders: Active Orders 24 hr Category Date Time Status EKG Documentation Completion [RC] STAT Care 11/06/19 12:30 Active Neurological Monitoring [RC] ASDIRECTED Care 11/06/19 14:36 Active CULTURE URINE [] Stat Lab 11/06/19 14:09 Received Sodium Chloride 0.9% [Normal Saline] 1,000 ml Med 11/06/19 13:15 Active IV NOW Medication Orders Sodium Chloride (Normal Saline) 1,000 mls @ 125 mls/hr IV NOW STA Stop: 11/06/19 21:14 Last Admin: 11/06/19 13:32 Dose: 125 mls/hr Documented by: UELMNIC Labs: Laboratory Tests 11/06/19 11/06/19 11/06/19 Range/Units 12:46 12:46 14:09 WBC 9.7 (5.0-10.0) 10^3/uL RBC 4.27 (4.2-5.4) 10^6/uL Hgb 12.7 D (12.0-16.0) g/dL Hct 38.5 (37.0-47.0) % MCV 90.2 (80-100) fL MCH 29.7 (27.0-34.0) pg MCHC 33.0 (33.0-35.0) g/dL Plt Count 276 (150-450) 10^3/uL Sodium 138 (136-145) mmol/L Potassium 4.2 (3.5-5.1) mmol/L Chloride 102 (98-107) mmol/L Carbon Dioxide 29 (21-32) mmol/L Anion Gap 11.2 (7-13) mEq/L BUN 33 H (7-18) mg/dL Creatinine 1.78 H (0.55-1.02) mg/dL Est Cr Clr Drug Dosing 18.42 mL/min Estimated GFR (MDRD) 27 BUN/Creatinine Ratio 18.5 (No establ ref range) Glucose 87 (74-99) mg/dL Calcium 9.0 (8.5-10.1) mg/dL Total Bilirubin 0.4 (0.2-1.0) mg/dL AST 13 L (15-37) U/L ALT 11 L (14-59) U/L Alkaline Phosphatase 78 (46-116) U/L Total Protein 7.4 (6.4-8.2) g/dL Albumin 3.2 L (3.4-5.0) g/dL Globulin 4.2 Albumin/Globulin Ratio 0.76 Urine Color Dark yellow (YELLOW) Urine Appearance Slightly cloudy (CLEAR) Urine pH 5.5 (5.0-9.0) Ur Specific [place] 1.020 (1.005-1.030) Urine Protein 30 H (NEGATIVE) Urine Glucose (UA) Negative (NEGATIVE) Urine Ketones Trace H (NEGATIVE) Urine Occult Blood Negative (NEGATIVE) Urine Nitrite Negative (NEGATIVE) Urine Bilirubin Negative (NEGATIVE) Urine Urobilinogen 0.2 (0.2-1.0) mg/dL Ur Leukocyte Esterase Small H (NEGATIVE) Urine RBC 0-5 /HPF Urine WBC 5-10 H (0-5/HPF) /HPF Ur Epithelial Cells Few (NOT SEEN) /HPF Amorphous Sediment Few (NOT SEEN) /HPF Urine Bacteria Few (0-FEW/HPF) /HPF Urine Mucus Moderate H (NOT SEEN) /LPF Meds: Medications Generic Name Dose Route Start Last Admin Trade Name Freq PRN Reason Stop Dose Admin Sodium Chloride 1,000 mls @ 125 mls/hr 11/06/19 13:15 11/06/19 13:32 Normal Saline IV 11/06/19 21:14 125 mls/hr NOW STA Administration Discontinued Medications Generic Name Dose Route Start Last Admin Trade Name Freq PRN Reason Stop Dose Admin Bacitracin Confirm 11/06/19 13:39 11/06/19 13:44 Bacitracin Oint 1 Gm Administered 11/06/19 13:40 1 dose Dose Administration 1 dose .ROUTE .STK-MED ONE Bacitracin 1 dose 11/06/19 13:43 11/06/19 13:44 Bacitracin Oint 1 Gm TOP 11/06/19 13:44 Not Given ONETIME ONE Nitrofurantoin Macrocrystals 100 mg 11/06/19 14:32 11/06/19 15:16 Macrobid PO 11/06/19 14:33 100 mg ONETIME ONE Administration - Radiology Interpretation Free Text/Narrative:: Head CT: No evidence for acute transcortical infarct, acute intracranial hemorrhage, or mass effect. See rad report. Departure - Departure Time of Disposition: 15:30 Disposition: DC/Tfer to Other 70 Condition: Good Clinical Impression: Dehydration, UTI, Urinary tract infectious disease Mild closed head injury Qualifiers: Encounter type: initial encounter Qualified Code(s): S09.90XA - Unspecified injury of head, initial encounter - Discharge Information Instructions: Dehydration, Adult, [id number], Urinary Tract Infection, Adult, Head Injury, Adult, [id number] Forms: ED Department Discharge Additional Instructions: Increase oral fluids. 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 Mild UTI; macrobid twice a day x 5 days; first dose started in ER; next dose in am. To follow up with her PCP next week for recheck. Sepsis Event Note (ED) - Focused Exam Vital Signs: Vital Signs Temp Pulse Resp BP Pulse Ox 11/06/19 12:33 98.1 F 63 14 169/68 H 94 L - My Orders Last 24 Hours: My Active Orders 11/06/19 12:30 EKG Documentation Completion [RC] STAT 11/06/19 13:15 Sodium Chloride 0.9% [Normal Saline] 1,000 ml IV NOW 11/06/19 14:09 CULTURE URINE [RM] Stat 11/06/19 14:36 Neurological Monitoring [RC] ASDIRECTED - Assessment/Plan Last 24 Hours: My Active Orders 11/06/19 12:30 EKG Documentation Completion [RC] STAT 11/06/19 13:15 Sodium Chloride 0.9% [Normal Saline] 1,000 ml IV NOW 11/06/19 14:09 CULTURE URINE [RM] Stat 11/06/19 14:36 Neurological Monitoring [RC] ASDIRECTED I have read and agree with the documentation that has been completed regarding this visit. By signing this record, I attest that the documentation was completed in my physical presence and is an accurate record of the encounter.
[2019-11-06] MEDS: Nitrofurantoin Monohydrate/Macrocrystalline 100 MG Cap PO ONE (15:16)
== END 2019-11-06 15:50 | disposition home or self-care (01) ==
LOC: DL.ED 12:30
DX: S00.81XA Abrasion of other part of head, initial encounter (principal); E86.0 Dehydration; N39.0 Urinary tract infection, site not specified; E78.00 Pure hypercholesterolemia, unspecified; I12.9 Hypertensive chronic kidney disease with stage 1 through stage 4 chronic kidney disease, or unspecified chronic kidney disease; N18.9 Chronic kidney disease, unspecified; M19.90 Unspecified osteoarthritis, unspecified site; F41.9 Anxiety disorder, unspecified; I45.10 Unspecified right bundle-branch block; Z98.890 Other specified postprocedural states; Z88.7 Allergy status to serum and vaccine; Z88.5 Allergy status to narcotic agent; Z88.1 Allergy status to other antibiotic agents; Z91.013 Allergy to seafood; W01.10XA Fall on same level from slipping, tripping and stumbling with subsequent striking against unspecified object, initial encounter
CPT/HCPCS: 36415; 70450; 80053; 81001; 85027; 87086; 87088; 87186; 93005; 96360; 96361; 99284; A9270; J7040; 93010

== ENCOUNTER 2020-01-09 20:26 | Emergency (ER) | payer MEDICARE ==
[2020-01-09 21:22] VITALS: BP 156/65; PULSE 65
--- NOTE | 2020-01-09 22:20 | CR ---
PROCEDURE INFORMATION: Exam: XR Abdomen, 2 Views Exam date and time: 01/09/2020 9:52 PM Age: 89 years old Clinical indication: Constipation TECHNIQUE: Imaging protocol: XR of the abdomen. Views: 2 Views. COMPARISON: No relevant prior studies available. FINDINGS: Tubes, catheters and devices: There is air in the biliary tree likely from prior sphincterotomy. Gastrointestinal tract: Non-specific/nonobstructive intestinal gas pattern. There is a large amount of colonic content identified particularly in the rectosigmoid.. Intraperitoneal space: 15 mm density projects over the right abdomen, precise location unclear. This could reflect an ingested object such as a pill. This does not appear to be related to the kidneys Vasculature: The vasculature demonstrates diffuse moderate atherosclerotic calcification. Bones/joints: Severe S-shaped thoracolumbar scoliosis with advanced degenerative change in the thoracolumbar spine. There is moderate narrowing of the weight-bearing aspect of the hip joints with significant subchondral sclerosis and marginal osteophyte formation. No acute bony findings are identified. IMPRESSION: 1. Non-specific/nonobstructive intestinal gas pattern. 2. There is a large amount of colonic content identified particularly in the rectosigmoid.
--- NOTE | 2020-01-09 23:44 | EDM.PDOC ---
ED HPI GENERAL MEDICAL PROBLEM - General Chief Complaint: Gastrointestinal Problem Stated Complaint: NO BOWEL MOVEMIENTS Time Seen by Provider: 01/09/20 21:25 Source of Information: Reports: Patient History Limitations: Reports: No Limitations - History of Present Illness INITIAL COMMENTS - FREE TEXT/NARRATIVE: ED with c/o constipation No BM at least 3 days, Rectal pressure and leakage. No fever or chills. Had been on stool softeners in past non recent since going to Assisted Living. Rectal Pain Score (Numeric/FACES): 6 - Related Data Allergies Allergy/AdvReac Type Severity Reaction Status Date / Time tetanus and diphtheria Allergy Severe Bronchospas Verified 11/06/19 12:40 toxoids ms [tetanus & diphtheria toxoids] codeine Allergy Unknown Rash Verified 11/06/19 12:40 shellfish derived Allergy Unknown Rash Verified 11/06/19 12:40 amoxicillin trihydrate AdvReac Unknown Nausea and Verified 11/06/19 12:40 [From Augmentin] Vomiting Home Meds: Home Meds Simvastatin [Zocor] 10 mg PO BEDTIME 06/20/13 [History] lisinopriL [Prinivil] 20 mg PO BID 06/20/13 [History] Gabapentin [Neurontin] 100 mg PO BID 11/08/17 [History] Alendronate [Fosamax] 35 mg PO .WED 09/15/19 [History] Calcium Carb/Vitamin D3/Vit K1 [Viactiv 650 mg-12.5 Mcg Chew] 1 tab PO DAILY 09/15/19 [History] Famotidine [Pepcid AC] 20 mg PO ACBREAKFAST 09/15/19 [History] Furosemide 20 mg PO .MONFR 09/15/19 [History] Hydrocodone/Acetaminophen [Hydrocodone-Acetamin 7.5-325] 1 tab PO Q8H PRN 09/15/19 [History] Magnesium Chloride [Slow-Mag] 71.5 mg PO DAILY 09/15/19 [History] Magnesium Hydroxide [Milk of Magnesia] 30 ml PO Q24H PRN 09/15/19 [History] atenoloL [Tenormin] 100 mg PO DAILY 09/15/19 [History] traZODone HCl [Trazodone HCl] 150 mg PO BEDTIME 09/15/19 [History] Bacitracin [Bacitracin Oint 1 GM] 1 cm TOP DAILY #1 tube 09/19/19 [Rx] Past Medical History - Past Health History Medical/Surgical History: Denies Medical/Surgical History HEENT History: Reports: Allergic Rhinitis, Cataract, Impaired Vision Cardiovascular History: Reports: High Cholesterol, Hypertension, Other (See Below) Other Cardiovascular History: "occasional irregular heart rate" Respiratory History: Reports: None Gastrointestinal History: Reports: Diverticulosis Genitourinary History: Reports: Chronic Renal Insuffiency, Other (See Below) Other Genitourinary History: RENAL CYSTS, stress incontinence 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 , Endometriosis, Fibroids, Musculoskeletal History: Reports: Arthritis, Back Pain, Chronic, Other (See Below) Other Musculoskeletal History: DEGENERATIVE JOINT DISEASE, "CRUSH INJURY TO RIGHT FOOT", SCOLIOSIS Neurological History: Reports: None Psychiatric History: Reports: Anxiety Endocrine/Metabolic History: Reports: Osteopenia Hematologic History: Reports: None Immunologic History: Reports: None Oncologic (Cancer) History: Reports: None Dermatologic History: Reports: Other (See Below) Other Dermatologic History: dry skin and moles - Infectious Disease History Infectious Disease History: Reports: Shingles - Past Surgical History Head Surgeries/Procedures: Reports: None HEENT Surgical History: Reports: Adenoidectomy, Cataract Surgery, Naso-Sinus Surgery, Tonsillectomy Cardiovascular Surgical History: Reports: None Respiratory Surgical History: Reports: None GI Surgical History: Reports: Appendectomy, Cholecystectomy, Colonoscopy, Other (See Below) Other GI Surgeries/Procedures: surgery for diverticulitis Female Surgical History: Reports: Section, Hysterectomy, Salpingo- Oophorectomy Endocrine Surgical History: Reports: None Neurological Surgical History: Reports: Laminectomy, Scoliosis Musculoskeletal Surgical History: Reports: Other (See Below) Other Musculoskeletal Surgeries/Procedures:: "back surgery in 1952" Oncologic Surgical History: Reports: None Social & Family History - Family History Family Medical History: Noncontributory - Tobacco Use Smoking Status *Q: Never Smoker Second Hand Smoke Exposure: No - Caffeine Use Caffeine Use: Reports: Coffee, Tea Other Caffeine Use: occasional pepsi or coke - Recreational Drug Use Recreational Drug Use: No ED ROS GENERAL - Review of Systems Review Of Systems: Comprehensive ROS is negative, except as noted in HPI. ED EXAM, GI/ABD - Physical Exam Exam: See Below Exam Limited By: No Limitations General Appearance: Alert, Mild Distress Eyes: Bilateral: EOMI Ears: Normal External Exam Nose: Normal Inspection Throat/Mouth: Normal Inspection Head: Atraumatic, Normocephalic Neck: Normal Inspection Respiratory/Chest: No Respiratory Distress, Lungs Clear Cardiovascular: Normal Peripheral Pulses, Regular Rate, Rhythm GI/Abdominal Exam: Normal Bowel Sounds, Soft. No: Guarding Rectal (Female) Exam: Fecal Impaction (moderate amount of hard stool rectal vault) Back Exam: Full Range of Motion Neurological: Alert, Memory Loss Recent Events Skin Exam: Warm, Dry, Intact, Normal Color Course - Vital Signs Last Recorded V/S: Last Vital Signs Temp 97.8 F 01/09/20 21:17 Pulse 65 01/09/20 21:17 Resp 18 01/09/20 21:17 BP 156/65 H 01/09/20 21:17 Pulse Ox 94 L 01/09/20 21:17 - Re-Assessments/Exams Free Text/Narrative Re-Assessment/Exam: 01/10/20 03:01 SS enema with large results, patient reports feeling better. Departure - Departure Time of Disposition: 23:41 Disposition: Home, Self-Care 01 Condition: Good Clinical Impression: Constipation - Discharge Information *PRESCRIPTION DRUG MONITORING PROGRAM REVIEWED*: No *COPY OF PRESCRIPTION DRUG MONITORING REPORT IN PATIENT TANNER: No Instructions: Constipation, Adult, [id number] Referrals: Shey Hammonds MD [Primary Care Provider] - Forms: ED Department Discharge Additional Instructions: increase fluids if able senokot 2 tablets twice daily\\ increase fiber and fruit in diet clinic follow up as needed Sepsis Event Note (ED) - Evaluation Sepsis Screening Result: No Definite Risk - Focused Exam Vital Signs: Vital Signs Temp Pulse Resp BP Pulse Ox 01/09/20 21:17 97.8 F 65 18 156/65 H 94 L
== END 2020-01-09 23:50 | disposition home or self-care (01) ==
LOC: DL.ED 20:26
DX: K59.00 Constipation, unspecified (principal); F41.9 Anxiety disorder, unspecified; M19.90 Unspecified osteoarthritis, unspecified site; E78.00 Pure hypercholesterolemia, unspecified; I10 Essential (primary) hypertension; Z88.0 Allergy status to penicillin; Z88.5 Allergy status to narcotic agent; Z91.013 Allergy to seafood; Z88.7 Allergy status to serum and vaccine; Z79.899 Other long term (current) drug therapy
CPT/HCPCS: 74019; 99282; 99283-25